=== PATIENT | male | born 2000 | race Caucasian/White ===

== ENCOUNTER 2022-01-07 19:38 | Emergency (ER) | payer SELFPAY ==
--- NOTE | 2022-01-07 19:50 | EDPHYS ---
Physician Documentation [facility] Name: Getachew Zazueta Age: 21 yrs Sex: Male : 2000 Arrival Date: 01/07/2022 Time: 19:42 Bed Waiting Private MD: ED Physician Presley Rapp HPI: 01/07 19:53 This 21 yrs old Male presents to ER via Ambulatory with complaints of Lips Swelling. kb 19:53 The patient has not recently seen a physician. kb 19:53 The patient presents with an abscess of the philtrum. Description: swollen. Onset: The kb symptoms/episode began/occurred 2 day(s) ago. Possible cause(s): unknown. Associated signs and symptoms: Pertinent positives: swelling, Pertinent negatives: discharge, drainage, erythema, foreign body sensation, fever, headache, nausea, shortness of breath, vomiting. Modifying factors: the symptoms are alleviated by nothing, the symptoms are aggravated by touching. Severity of symptoms: At their worst the symptoms were mild, in the emergency department the symptoms are unchanged. The patient has not experienced similar symptoms in the past. Historical: - Allergies: 19:50 No Known Allergies; bm7 - Home Meds: 19:50 None [Active]; bm7 - PMHx: 19:50 None; bm7 - PSHx: 19:50 None; bm7 - Immunization history:: Adult Immunizations up to date. - Social history:: Patient/guardian denies using tobacco products, Smoking status: Patient denies any tobacco usage or history of. ROS: 19:52 Constitutional: Negative for fever, chills, and weight loss. kb 19:52 Skin: Positive for abscess, of the philtrum. 19:52 All other systems are negative. Exam: 19:52 Constitutional: This is a well developed, well nourished patient who is awake, alert, kb and in no acute distress. Head/Face: Normocephalic, atraumatic. ENT: Moist Mucous membranes Respiratory: Respirations even and unlabored. No increased work of breathing. Talking in full sentences MS/ Extremity: Pulses equal, no cyanosis. Neurovascular intact. Full, normal range of motion. Neuro: Awake and alert, GCS 15, oriented to person, place, time, and situation. Moves all extremities. Normal gait. 19:52 Skin: abscess, that is small, of the philtrum, with induration. Vital Signs: 19:47 BP 145 / 80; Pulse 84; Resp 16; Temp 97.5(TE); Pulse Ox 100% on R/A; Weight 99.79 kg bm7 (R); Height 5 ft. 11 in. (180.34 cm); Pain 4/10; 19:47 Body Mass Index 30.68 (99.79 kg, 180.34 cm) bm7 MDM: 19:47 Patient medically screened. kb 19:53 Data reviewed: vital signs, nurses notes. Data interpreted: Pulse oximetry: on room air kb is 100 %. Interpretation: normal. Counseling: I had a detailed discussion with the patient and/or guardian regarding: the historical points, exam findings, and any diagnostic results supporting the discharge/admit diagnosis, the need for outpatient follow up, a family practitioner, to return to the emergency department if symptoms worsen or persist or if there are any questions or concerns that arise at home. Administered Medications: No medications were administered Disposition: 23:36 Co-signature as Attending Physician, Presley Rapp MD I agree with the assessment and kdr plan of care. Disposition Summary: 01/07/22 19:50 Discharge Ordered Location: Home kb Condition: Stable kb Diagnosis - Cutaneous abscess of face kb Followup: kb - With: Emergency Department - When: As needed - Reason: Worsening of condition Followup: kb - With: Private Physician - When: 2 - 3 days - Reason: Recheck today's complaints, Continuance of care, Re-evaluation by your physician Discharge Instructions: - Discharge Summary Sheet kb - Skin Abscess, [id number] kb Forms: - Medication Reconciliation Form kb - Thank You Letter kb - Antibiotic Education kb - Prescription Opioid Use kb Prescriptions: - Bactrim DS 800-160 mg Oral Tablet - take 1 tablet by ORAL route every 12 hours for 10 days; 20 tablet; Refills: 0, kb Product Selection Permitted Signatures: Arelis Marino, GITA MYERS-Presley Márquez MD MD [facility] Lindsey Marsh, RN RN bm7
--- NOTE | 2022-01-07 19:50 | ER ---
Nurse's Notes [facility] Name: Getachew Zazueta Age: 21 yrs Sex: Male : 2000 Arrival Date: 01/07/2022 Time: 19:42 Bed Waiting Private MD: Diagnosis: Cutaneous abscess of face Presentation: 01/07 19:47 Chief complaint: Patient states: I think I have a cyst on my lip. About two days ago I bm7 woke up with a knot on my top lip and its swollen. Coronavirus screen: At this time, the client does not indicate any symptoms associated with coronavirus-19. Ebola Screen: No symptoms or risks identified at this time. Initial Sepsis Screen: Does the patient meet any 2 criteria? No. Patient's initial sepsis screen is negative. Does the patient have a suspected source of infection? No. Patient's initial sepsis screen is negative. Risk Assessment: Do you want to hurt yourself or someone else? Patient reports no desire to harm self or others. Onset of symptoms was January 05, 2022. 19:47 Method Of Arrival: Ambulatory [facility] 19:47 Acuity: SULMA 4 bm7 Triage Assessment: 19:53 General: Appears in no apparent distress. comfortable, Behavior is calm, cooperative, bm7 appropriate for age. Pain: Complains of pain in face and philtrum. EENT: upper right swollen lip. Neuro: No deficits noted. Cardiovascular: No deficits noted. Respiratory: No deficits noted. GI: No deficits noted. No signs and/or symptoms were reported involving the gastrointestinal system. : No deficits noted. No signs and/or symptoms were reported regarding the genitourinary system. Derm: No deficits noted. No signs and/or symptoms reported regarding the dermatologic system. Musculoskeletal: No deficits noted. No signs and/or symptoms reported regarding the musculoskeletal system. Historical: - Allergies: 19:50 No Known Allergies; bm7 - Home Meds: 19:50 None [Active]; bm7 - PMHx: 19:50 None; bm7 - PSHx: 19:50 None; bm7 - Immunization history:: Adult Immunizations up to date. - Social history:: Patient/guardian denies using tobacco products, Smoking status: Patient denies any tobacco usage or history of. Screenin:54 Abuse screen: Denies threats or abuse. Nutritional screening: No deficits noted. bm7 Tuberculosis screening: No symptoms or risk factors identified. Fall Risk None identified. Assessment: 19:54 Reassessment: No changes from previously documented assessment. bm7 Vital Signs: 19:47 BP 145 / 80; Pulse 84; Resp 16; Temp 97.5(TE); Pulse Ox 100% on R/A; Weight 99.79 kg bm7 (R); Height 5 ft. 11 in. (180.34 cm); Pain 4/10; 19:47 Body Mass Index 30.68 (99.79 kg, 180.34 cm) bm7 ED Course: 19:42 Patient arrived in ED. bp1 19:47 Arelis Marino FNP-C [facility]. kb 19:47 Presley Rapp MD is Attending Physician. kb 19:50 Triage completed. bm7 19:53 Arm band placed on right wrist. bm7 19:54 Patient has correct armband on for positive identification. bm7 19:54 No provider procedures requiring assistance completed. Patient did not have IV access bm7 during this emergency room visit. Administered Medications: No medications were administered Medication: 19:54 VIS not applicable for this client. bm7 Outcome: 19:50 Discharge ordered by MD. kb 19:54 Discharged to home ambulatory. bm7 19:54 Condition: good 19:54 Discharge instructions given to patient, Instructed on discharge instructions, follow up and referral plans. medication usage, Demonstrated understanding of instructions, follow-up care, medications, Prescriptions given X 1. 19:55 Patient left the ED. bm7 Signatures: Arelis Marino FNP-C FNP-Lindsey Proctor Brittany, RN RN bm7
[2022-01-07 20:41] VITALS: BP 145/80; TEMP 97.5; O2SAT 100
== END 2022-01-07 19:55 | disposition home or self-care (01) ==
LOC: ER 19:38
DX: L02.01 Cutaneous abscess of face (principal)
CPT/HCPCS: 99282